=== PATIENT | female | born 1965 | race Caucasian/White ===

== ENCOUNTER 2018-12-02 15:15 | Outpatient (CLI) | payer OTHER ==
--- NOTE | 2018-12-02 15:42 | RAD ---
EXAM: XR Cerv Sp Ap Lat STANDARD PROVIDED CLINICAL HISTORY: Neck pain COMPARISON: None FINDINGS: C1 to the C7 vertebral body is seen on the lateral view. T1 vertebral body is not well-visualized, bu t there does not appear to be a subluxation at this level. No fracture or subluxation is seen involving the cervical spine. There is loss of intervertebral disc height and osteophytes seen at mul tiple levels of the cervical spine. There is mild straightening of the normal cervical lordotic curvature. Prevertebral soft tissues are within normal limits. IMPRESSION: Degenerative changes in the cervical spine without fracture or subluxation seen.
== END 2018-12-02 15:16 | disposition home or self-care (01) ==
LOC: TBSIIMAG 15:15
PROVIDERS: ATTEND Neurological Surgery
DX: M54.2 Cervicalgia (principal); M47.812 Spondylosis without myelopathy or radiculopathy, cervical region
CPT/HCPCS: 72040

== ENCOUNTER 2018-12-18 12:52 | Outpatient (CLI) | payer OTHER ==
--- NOTE | 2018-12-18 13:50 | MRI ---
MRI CERVICAL SPINE WITHOUT CONTRAST: HISTORY: Cervical pain. Bilateral arm paresthesia. Numbness and tingling x2 years. COMPARISON: None. FINDINGS: Straightening of normal cervical lordosis. Appropriate T1 marrow signal intensity of the cervical samson tebrae. Vertebral body height is maintained. No fracture. No significant STIR hyperintensity to suggest edema from fracture. No evidence of ligamentous injury. Type I Modic changes at C6-C7 are noted. C2-C3: Broad based disc bulge without significant central canal stenosis. Bilaterally neural foramina are patent. C3-C4: Broad based disc bulge effaces the subarachnoid space. There is contact upon and minimal dragan ening of the cervical cord. Mild central canal stenosis. No cord signal abnormality. Moderate bilateral foraminal narrowing due to uncovertebral hypertrophy. C4-C5: Broad based disc bulge effaces the subarachnoid space. Flattening and deformity of the cervica l cord. Moderate to severe central canal stenosis. No cord hyperintensity. Moderate right and moderate to severe left neural foraminal narrowing due to uncovertebral hypertrophy. C5-C6: Broad based disc osteophyte complex with a left and right paracentral component. Subarachnoid space is effaced. Flattening and deformity of the cervical cord. Moderate central canal stenosis. Moderate right and mild left neural foraminal narrowing due to uncovertebral hypertrophy. C6-C7: Broad based disc osteophyte complex effaces the subarachnoid space. Flattening of the cervical cord. Moderate central canal stenosis. No cord hyperintensity. Mild bilateral neural foraminal narrowing. C7-T1: No significant central canal stenosis or significant neural foraminal narrowing. Minimal centr al disc protrusion is noted. IMPRESSION: 1. Degenerative changes of the cervical spine as detailed above. 2. Broad based disc bulge at C3-C4 with mild central canal stenosis. Broad based disc bulge with mode rate to severe central canal stenosis at C4-C5. Broad based disc osteophyte complex at C5-C6 with moderate central canal stenosis. 3. Moderate right neural foraminal narrowing at C4-C5 and C5-C6. Moderate to severe left neural atul inal narrowing at C4-C5. Transcribed Date/Time: 12/18/2018 2:38 PM
== END 2018-12-18 12:53 | disposition home or self-care (01) ==
LOC: SCSMRI 12:52
PROVIDERS: ATTEND Neurological Surgery
DX: M54.2 Cervicalgia (principal); R20.2 Paresthesia of skin; M48.02 Spinal stenosis, cervical region; M50.91 Cervical disc disorder, unspecified, high cervical region; M47.812 Spondylosis without myelopathy or radiculopathy, cervical region; M25.78 Osteophyte, vertebrae
CPT/HCPCS: 72141

== ENCOUNTER 2019-01-05 14:40 | Outpatient (CLI) | payer OTHER ==
--- NOTE | 2019-01-05 15:02 | RAD ---
Cervical spine 3 views: 01/05/2019 COMPARISON: 12/02/2018 HISTORY: Neck pain, radiculopathy, hand/arm numbness bilaterally FINDINGS: Neutral lateral examination demonstrates no anterolisthesis or retrolisthesis. Disc space n arrowing with degenerative endplate change and anterior osteophyte formation present at C5-6 and C6-7, and to a lesser degree, C3-4. On the flexion and extension imaging there is no significant ante rolisthesis or retrolisthesis. No prevertebral soft tissue swelling. IMPRESSION: Cervical spine degenerative change as above. No significant anterolisthesis or retrolisth esis is noted.
== END 2019-01-05 14:41 | disposition home or self-care (01) ==
LOC: TBSIIMAG 14:40
PROVIDERS: ATTEND Neurological Surgery
DX: M54.2 Cervicalgia (principal); M47.812 Spondylosis without myelopathy or radiculopathy, cervical region
CPT/HCPCS: 72040

== ENCOUNTER 2019-05-11 11:09 | Outpatient (CLI) | payer OTHER ==
[2019-05-11 12:52] LABS: #Basophils 0.1 thou/uL (0.0-0.2); #Eosinphils 0.2 thou/uL (0.0-0.7); #Lymphocytes 2.1 thou/uL (1.20-3.40); #Monocytes 0.6 thou/uL (0.11-0.59); #Neutrophils 3.1 thou/uL (1.40-6.50); %Basophils 1.3 % (0.0-1.0); %Eosinophils 3.4 % (0.0-10.0); %Lymphocytes 34.7 % (21.0-51.0); %Monocytes 10.3 % (0.0-10.0); %Neutrophils 50.3 % (42.0-75.0); Bilirubin Negative (Negative); Blood, Urine Negative (Negative); Clarity Clear (Clear); Glucose, Urine (Dipstick) Negative (Negative); Hemoglobin 13.5 g/dL (12.0-16.0); Leukocyte Negative (Negative); Mean Corpuscular HGB CONC 33.3 g/dL (32.0-36.0); Mean Corpuscular Hemoglobin 29.4 pg (27.0-31.0); Mean Corpuscular Volume 88.1 fL (78.0-98.0); Mean Platelet Volume 7.7 fL (7.4-10.4); Nitrite Negative (Negative); Platelet Count 264 thou/uL (130-400); Protein, Urine (Dipstick) Negative (Neg-Trace); RBC Distribution Width 11.3 % (11.5-14.5); Urobilinogen 0.2 mg/dL (Less than 2); White Blood Cell (WBC) Count 6.1 thou/uL (4.8-10.8)
[2019-05-11 12:59] LABS: Bacteria/HPF None Seen HPF (None Seen); RBC/HPF 0-3 HPF (0-3); Squamous Epithelial 0-3 HPF (0-3); WBC/HPF 0-3 HPF (0-3)
== END 2019-05-11 11:10 | disposition home or self-care (01) ==
LOC: LABBT 11:09
PROVIDERS: ATTEND Orthopaedic Surgery
DX: Z01.812 Encounter for preprocedural laboratory examination (principal); G56.03 Carpal tunnel syndrome, bilateral upper limbs
CPT/HCPCS: 81001; 85025

== ENCOUNTER 2019-07-03 06:12 | Outpatient (CLI) | payer OTHER ==
[2019-07-03 11:51] LABS: #Basophils 0.1 thou/uL (0.0-0.2); #Eosinphils 0.2 thou/uL (0.0-0.7); #Lymphocytes 1.5 thou/uL (1.20-3.40); #Monocytes 0.5 thou/uL (0.11-0.59); #Neutrophils 2.1 thou/uL (1.40-6.50); %Basophils 1.1 % (0.0-1.0); %Lymphocytes 34.4 % (21.0-51.0); %Monocytes 11.4 % (0.0-10.0); %Neutrophils 48.1 % (42.0-75.0); Hemoglobin 12.6 g/dL (12.0-16.0); Mean Corpuscular HGB CONC 32.4 g/dL (32.0-36.0); Mean Corpuscular Hemoglobin 29.1 pg (27.0-31.0); Mean Corpuscular Volume 89.8 fL (78.0-98.0); Mean Platelet Volume 8.2 fL (7.4-10.4); Platelet Count 219 thou/uL (130-400); RBC Distribution Width 11.6 % (11.5-14.5); Red Blood Cell (RBC) Count 4.33 mill/uL (4.20-5.40); White Blood Cell (WBC) Count 4.5 thou/uL (4.8-10.8)
[2019-07-03 12:34] LABS: BHCG - Serum Indeterminate (NEGATIVE); Pregs Control Background? CLEAR/WHITE (CLR/WHITE); Pregs Control Bar Appear? YES (CONTROL BAR)
[2019-07-03 14:48] LABS: Bilirubin Negative (Negative); Blood, Urine Negative (Negative); Glucose, Urine (Dipstick) Negative (Negative); Leukocyte Negative (Negative); Nitrite Negative (Negative); Protein, Urine (Dipstick) Negative (Neg-Trace); Urobilinogen 0.2 mg/dL (Less than 2)
[2019-07-03 15:23] LABS: Clarity Opaque (Clear)
[2019-07-03 15:40] LABS: Bacteria/HPF None Seen HPF (None Seen); RBC/HPF 0-3 HPF (0-3); Squamous Epithelial 0-3 HPF (0-3); WBC/HPF 0-3 HPF (0-3)
[2019-07-03 18:20] LABS: SARS-CoV-2 MS2 Positive; SARS-CoV-2 N Gene Negative; SARS-CoV-2 S Gene Negative; SARS-CoV-2 orf1ab Negative
== END 2019-07-03 06:13 | disposition home or self-care (01) ==
LOC: LABBT 06:12
PROVIDERS: ATTEND Orthopaedic Surgery
DX: Z01.812 Encounter for preprocedural laboratory examination (principal); Z11.59 Encounter for screening for other viral diseases; G56.03 Carpal tunnel syndrome, bilateral upper limbs
CPT/HCPCS: 81001; 84703; 85025; 87635; U0003

== ENCOUNTER 2019-07-07 08:01 | Day surgery (SDC) | payer OTHER ==
[2019-07-03 10:12] VITALS: BMI 25.7
[2019-07-07] MEDS ORDERED: Fentanyl 100 MCG/2 ML VIAL ONE (09:22)
[2019-07-07] MEDS ORDERED: Midazolam HCl 2 mg/2 ml Vial ONE (09:22)
[2019-07-07] MEDS ORDERED: Lidocaine 1% w/Epinephrine 1:100K 20 ML VIAL ONE (09:23)
--- NOTE | 2019-07-07 10:24 | HP ---
PREOPERATIVE DIAGNOSIS: Bilateral carpal tunnel syndrome. 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 She is right-hand dominant, complains of pain for greater than 3 years. She has numbness, tingling, night pain, pain from 1-10 at 9/10. Notes she wakes her up at night, left greater than right. PAST MEDICAL HISTORY: Anemia, thyroid disease. PAST SURGICAL HISTORY: , tonsillectomy. MEDICATIONS: 1. Tylenol. 2. Vitamin D3. 3. Folic acid. 4. Levothyroxine . ALLERGIES: SULFA SOCIAL HISTORY: Nonsmoker. 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 PHYSICAL EXAMINATION: GENERAL: Alert and oriented female, in no acute distress. EXTREMITIES: Left upper extremity, she has, no wounds, tender to palpation. She has decreased sensation in median nerve distribution, and brisk cap refill. Positive nerve conduction studies. Right wrist; negative for swelling, pain, or atrophy. Decreased sensation in median nerve distribution, positive carpal tunnel syndrome. The patient has bilateral carpal tunnel syndrome. ASSESSMENT AND PLAN: The patient will be taken to the operating room for an open release of bilateral carpal tunnel syndrome. I discussed risks and benefits, damage to nerve, wound problems, continued pain. She understands risks and benefits and elected to proceed. Job ID: [id number] MTDD
[2019-07-07] MEDS ORDERED: HYDROcodone/Acetaminophen 5/325 mg Tablet ONE (11:09)
[2019-07-07] MEDS ORDERED: Dexamethasone 20 MG/5 ML VIAL ONE (11:38)
[2019-07-07] MEDS ORDERED: Ondansetron PF 4 MG/2 ML Vial ONE (11:38)
[2019-07-07] MEDS ORDERED: PROPOFOL 200 MG/20 ML VIAL ONE (11:38)
[2019-07-07] MEDS ORDERED: Lidocaine 1% PF 5 ML VIAL ONE (11:38)
--- NOTE | 2019-07-07 12:35 | OP ---
DATE OF PROCEDURE: 07/07/2019 PREOPERATIVE DIAGNOSIS: Bilateral carpal tunnel syndrome. POSTOPERATIVE DIAGNOSE: Bilateral carpal tunnel syndrome. PROCEDURES PERFORMED: 1. Right carpal tunnel release, open. 2. Left carpal tunnel release, open. REAL ESTATE ACCOUNTANT: None. ANESTHESIA: Dr. Dunham. The patient received an LMA with 5 mL of 1% lidocaine with epi on the right, 3 mL of lidocaine with epi on the left. ANTIBIOTICS: Ancef 2 g. ESTIMATED BLOOD LOSS: Less than 20 mL of blood loss. TOURNIQUET TIME: Right 4 minutes, left 3 minutes. COMPLICATIONS: None. HISTORY OF PRESENT ILLNESS: Ms. Blanco is a 53-year-old female, presented with bilateral carpal tunnel syndrome, history of nerve conduction studies, symptoms increased. Discussed with the patient risks and benefits of bilateral carpal tunnel release including pain, scar, bleeding, infection, damage to vital structures, decreased range of motion and strength, continued pain despite surgical intervention. The patient understood the risks and benefits of the procedure and elected to proceed. DESCRIPTION OF PROCEDURE: Time-out was performed designating the patient's bilateral upper extremities as the operative site based on site, consents, and markings. The right upper extremity was prepped and draped in a sterile fashion. We made an incision in proximal Stokes's cardinal line down to the flexor crease on the radial aspect of 4th ray down through skin, blunt dissected, came down on the palmar fascia. I used a hemostat to protect, and then transected the palmar fascia, I came to the palmaris brevis, came to the transverse carpal ligament, protected the nerve and ensured proximally it was released. I was then able to place my hemostat into my pickups to ensure a space for the nerve proximally. I was happy with overall release. I washed, let the tourniquet down after 4 minutes. I controlled the bleeding and closed with 4-0 nylon. I injected 5 mL of lidocaine 1% with epi in the incision line. Soft tissue dressing was applied at the end of the case. Procedure #2: Left upper extremity was prepped and draped. A time out had been performed. I made a skin incision down the left wrist on the radial aspect of the 4th ray, proximal to Stkoes's cardinal line, down through skin, dissecting down bluntly to the palmar fascia, and protected and transected the palmar fascia, came down to transverse carpal ligament and the palmaris brevis, dissected through, which I then exposed the patient's nerve, proximally dissected to ensure it was completely released. I washed and I closed the skin with 4-0 nylon. I injected 3 mL of lidocaine 1% with epi in the skin incision, placed a soft tissue dressing. The patient will keep the dressing on for 48 hours, switch to a Velcro wrist splint. She will be sent home with hydrocodone for pain relief. She will follow up with me in clinic in 10 to 14 days for suture removal. Job ID: [id number] [facility]
== END 2019-07-07 12:55 | disposition home or self-care (01) ==
LOC: SDC 08:01
PROVIDERS: ATTEND Orthopaedic Surgery
PROC: 01N50ZZ Release Median Nerve, Open Approach (ICD-10-PCS; principal; 2019-07-07)
DX: G56.03 Carpal tunnel syndrome, bilateral upper limbs (principal); D64.9 Anemia, unspecified; E07.9 Disorder of thyroid, unspecified; Z79.899 Other long term (current) drug therapy; Z88.2 Allergy status to sulfonamides
CPT/HCPCS: J0690; J1100; J2001; J2250; J2405; J2704; J3010